=== PATIENT | male | born 1955 | race Caucasian/White ===

== ENCOUNTER → 2021-05-16 09:14 | Outpatient (BNVA) | payer MEDICARE, MEDICAID, SELFPAY | PROVIDERS: Visit Provider Emergency Medicine | DX: M79.671 Pain in right foot (principal); M79.644 Pain in right finger(s); S92.514A Nondisplaced fracture of proximal phalanx of right lesser toe(s), initial encounter for closed fracture; X58.XXXA Exposure to other specified factors, initial encounter | CPT/HCPCS: 73120; 73620 ==